=== PATIENT | male | born 2000 | race Two or more races ===

== ENCOUNTER 2022-09-03 16:44 | Observation (INO) ==
--- NOTE | 2022-09-03 16:53 | ED Triage Note ---
Date of Service September 03, 2022 History of Present Illness This patient was briefly evaluated while in triage. An abbreviated physical exam was performed. This patient is a 22-year-old Male with no past medical history of who presents to the ED for evaluation of nausea diarrhea f/c upset stomach 3 days (Thursday) fever 38.3 chest ache today [employer] student in the dorm Physical Exam GENERAL: NAD, febrile CARDIOVASCULAR: RRR RESPIRATORY: CTA ABDOMEN: BS x 4. LLQ TTP Initial orders for labs and / or imaging were placed and patient was placed in the waiting area until a bed is available. Please see further documentation for the full ED course.
[2022-09-03] MEDS ORDERED: SODIUM CHLORIDE 0.9% 1000ML 1,000 ML IV SCH (16:55)
[2022-09-03 18:07] LABS: Appearance Urine Clear (Clear); Bilirubin Urine Negative (Negative); Blood Urine Negative (Negative); Color Urine Yellow; Glucose Urine UA Negative (Negative); Ketones Urine Trace (Negative); Leukocyte Esterase Urine Negative (Negative); Nitrite Urine Negative (Negative); Protein Urine Negative (Negative); Specific Gravity Urine 1.023 (1.000-1.030); Urobilinogen Urine Negative (Negative); pH Urine 6.5 (4.5-7.5)
[2022-09-03 18:12] LABS: Basophils # (auto) 0.01 K/uL (0-0.2); Basophils % (auto) 0.2 %; Eosinophils # (auto) 0.03 K/uL (0-0.50); Eosinophils % (auto) 0.6 %; Hematocrit (blood only) 47.3 % (42.0-52.0); Hemoglobin 16.6 g/dl (14.0-18.0); Immature Granulocytes # (auto) 0.01 K/uL (0.01-0.20); Immature Granulocytes % (auto) 0.2 %; Lymphocytes # (auto) 0.82 K/uL (1.2-3.4); Lymphocytes % (auto) 15.3 %; Mean Corpuscular Hemoglobin 28.3 pg (25.0-34.0); Mean Corpuscular Hgb Conc 35.1 g/dL (32.0-36.0); Mean Corpuscular Volume 80.7 fL (80.0-100.0); Mean Platelet Volume 9.2 fL (9.4-12.4); Monocytes # (auto) 0.72 K/uL (0.11-0.59); Monocytes % (auto) 13.4 %; Neutrophils # (auto) 3.77 K/uL (1.40-6.50); Neutrophils % (auto) 70.3 %; Platelet Count 166 K/uL (130-400); RDW Coefficient of Variation 12.7 % (11.5-14.5); RDW Standard Deviation 37.1 fL (36.4-46.3); Red Blood Count 5.86 M/uL (4.70-6.10); White Blood Count 5.36 K/ul (4.8-10.8)
[2022-09-03 18:30] LABS: Albumin Globulin Ratio 1.5 (0.9-2); Albumin Level 4.5 gm/dl (3.4-5.0); Bilirubin,Total 2.5 mg/dl (0.2-1.0); Creatinine Clr Calc Pharmacy 125.6 ml/min; Globulin 3.1 gm/dl (2.5-4.0); Total Protein 7.6 gm/dl (6.0-8.3)
[2022-09-03 18:38] LABS: Influenza A virus by PCR Negative (Neg); Influenza B virus by PCR Negative (Neg); RSV by PCR Negative (Neg); SARS CoV2 RNA(COVID-19) Ceph NEGATIVE (Negative)
[2022-09-03 18:40] LABS: BUN Creatinine Ratio 15.5 (10-20); Est GFR (African American) 111.4 ml/min; Est GFR (Non-African American) 96.1 ml/min
[2022-09-03] MEDS ORDERED: SODIUM CHLORIDE 0.9% 1000ML 1,000 ML IV ONE (19:16)
[2022-09-03] MEDS ORDERED: ACETAMINOPHEN 500 MG TAB PO STA (19:16)
[2022-09-03] MEDS ORDERED: ONDANSETRON INJ 2 MG/ML 2 ML VIAL IV STA (19:16)
[2022-09-03] MEDS ORDERED: KETOROLAC TROMETHAMINE 15 MG/ML VIAL IV ONE (19:16)
--- NOTE | 2022-09-03 19:20 | Emergency Department Note ---
Impression & Plan Acute myopericarditis, Chest pain, Elevated troponin I level, Diarrhea ED Provider Note NAME: DIPESH URENA AGE: 22 SEX: M : 2000 ARRIVES VIA: Walk-In INFORMANT: Patient, ED PROVIDER(S): Jarred Gilmore DO CHIEF COMPLAINT: Diarrhea HPI: The patient is a 22-year-old male who presented to the emergency department for an evaluation of diarrhea. The patient started noticing symptoms over the last 2 to 3 days. He is noticed loose bowel movements. He denies having any GI bleeding. He complains of low-grade fever and cough. He is also noticed some chest pain. The patient denies having any lower extremity swelling. He denies having any hemoptysis. He is a college student. He has no definite sick contacts. The patient's been trying [id number] medication with only minimal relief. ROS: See above HPI for pertinent positives & negatives. A total of 10 systems reviewed and were otherwise negative. PAST MEDICAL HISTORY: See Below PAST SURGICAL HISTORY: See Below FAMILY HISTORY: See Below SOCIAL HISTORY: See Below HOME MEDICATIONS: See Below ALLERGIES: See Below VITALS: See Below PHYSICAL EXAMINATION: GENERAL: Patient is awake alert in no acute distress patient is resting comfortably and showing no signs of anxiety EYES: The conjunctivae are clear. The pupils are round and reactive. EARS, NOSE, MOUTH AND THROAT: The nose is without any evidence of any deformity. Mucous membranes are moist. NECK: The neck is nontender and supple. RESPIRATORY: Normal respiratory effort is noted there is no evidence of wheezing rhonchi or rales CARDIOVASCULAR: Regular rate and rhythm noted there no murmurs rubs or gallops normal S1 normal S2. GASTROINTESTINAL: The abdomen is soft. Abdomen is nontender. MUSCULOSKELETAL/EXTREMITIES: There is no evidence of gross deformity full range of motion is noted in the hips and shoulders. SKIN: There is no obvious evidence of any rash. There are no petechiae, pallor or cyanosis noted. NEUROLOGIC: Patient is awake alert and oriented x3 strength is symmetric patellar reflexes are 2+ bilaterally MEDICAL DECISION MAKING: The patient is a 22-year-old male who presented to the emergency department for GI symptoms. Initially he was experiencing nausea vomiting and mostly diarrhea. He was treated with IV fluids and IV antiemetics. On reevaluation he was feeling much better. The patient also complained of chest pain. Initially the chest pain was described as pleuritic but then on reevaluation he was admitting that the pain was worsened with lying flat. He had no acute EKG changes but did have an elevation in his troponin. I discussed patient's condition with the on- call associate director regulatory affairs. They did recommend that I discussed the case with the admitting team for possible inpatient management as well as echocardiogram in 24 hours to evaluate the ventricle. I discussed this plan with the patient and he was agreeable. The case was discussed with the [facility] hospitalist group. Triage Nursing notes reviewed. Prior medical records reviewed Vital Signs: reviewed and remarkable for initial tachycardia and fever. Differential diagnosis: Etiologies such as appendicitis, diverticulitis, obstruction, inflammatory bowel disease, renal colic, PUD, biliary pathology, pancreatitis, mesenteric ischemia, aortic pathology, infections, genitourinary, UTI, perforated viscus, as well as others were entertained. ER treatment provided: See below Diagnostics interpreted by me: ECG: EKG was obtained in the emergency department. My interpretation is normal sinus rhythm at 81 bpm. There was no ectopy. There is no acute ST segment abnormalities noted. No previous tracing was available. Cardiac Monitoring: An order was placed for continuous cardiac monitoring. The monitor shows a rate of 80 bpm with sinus rhythm. Laboratory studies: As stated above and show below. Imaging studies: See below. Radiographic imaging was reviewed by myself Consultation(s): I discussed this case with Dr. Cervantes who is on-call for [facility] cardiology. Dr. Morales was notified about the patient. She will evaluate the patient in the emergency department. Past Med/Surg History Surgical History (Updated 09/03/22 @ 22:44 by Basil Jaffe MD) History of appendectomy Family History (Updated 09/03/22 @ 22:39 by Basil Jaffe MD) Grandfather (Paternal) Diabetes Social History Smoking Status: Never smoker Second Hand Exposure: No; Do You Dip or Chew Tobacco: No; Hx Alcohol Use: No Hx Substance Use: No Preferred Language: Greenlandic Communication Ability: Effective Clinical Specialist Medical Device Required: No Beliefs That Will Affect Care: None Current Living Situation: Other Current Living Situation Comment: [employer] student with roommate Feels Safe at Home: Yes Safety Concerns: Feels Safe At This Time Assistive Devices: None Allergies Allergies Allergy/AdvReac Type Severity Reaction Status Date / Time No Known Allergies Allergy Unverified 09/03/22 22:27 Home Meds Home Medications Medication Instructions Recorded Confirmed No Known Home Medications 09/03/22 09/03/22 Results & Data (ED) Vital Signs Vital Signs - 24 hr 09/03/22 16:51 09/03/22 20:06 09/03/22 20:05 Temperature 38.3 C H 37.9 C H Temperature Source Temporal Artery Scan Oral Pulse Rate 96 H 83 Pulse Rate [Apical] 83 Pulse Rate from SpO2 Sensor Respiratory Rate 18 18 Respiratory Effort / Characteristics Non-Labored Respiratory Depth Normal Blood Pressure 153/94 H Blood Pressure [Left Arm] 147/80 H Blood Pressure Mean 113 Blood Pressure Mean [Left Arm] 102 Pulse Oximetry 98 100 Oxygen Delivery Method Room Air Room Air Sepsis Recent Fever Within 48 Hours Yes Sepsis New/Unexplained Change in Mental Status No Sepsis Action Taken by Nursing No Action Required 09/03/22 20:02 09/03/22 20:30 09/03/22 20:30 Temperature Temperature Source Pulse Rate 88 87 Pulse Rate [Apical] Pulse Rate from SpO2 Sensor 89 88 Respiratory Rate 24 22 Respiratory Effort / Characteristics Respiratory Depth Blood Pressure 134/68 Blood Pressure [Left Arm] Blood Pressure Mean 90 Blood Pressure Mean [Left Arm] Pulse Oximetry 98 96 Oxygen Delivery Method Sepsis Recent Fever Within 48 Hours Sepsis New/Unexplained Change in Mental Status Sepsis Action Taken by Nursing 09/03/22 21:10 09/03/22 21:12 09/03/22 21:12 Temperature Temperature Source Pulse Rate 89 88 Pulse Rate [Apical] Pulse Rate from SpO2 Sensor 90 88 Respiratory Rate 18 19 Respiratory Effort / Characteristics Respiratory Depth Blood Pressure 124/68 Blood Pressure [Left Arm] Blood Pressure Mean 86 Blood Pressure Mean [Left Arm] Pulse Oximetry 97 98 Oxygen Delivery Method Sepsis Recent Fever Within 48 Hours Sepsis New/Unexplained Change in Mental Status Sepsis Action Taken by Nursing 09/03/22 22:21 09/03/22 21:30 09/03/22 21:30 Temperature 37.0 C Temperature Source Oral Pulse Rate 86 Pulse Rate [Apical] 66 Pulse Rate from SpO2 Sensor 90 Respiratory Rate 20 18 Respiratory Effort / Characteristics Non-Labored Respiratory Depth Normal Blood Pressure 135/72 Blood Pressure [Left Arm] 125/72 Blood Pressure Mean 93 Blood Pressure Mean [Left Arm] 89 Pulse Oximetry 99 97 Oxygen Delivery Method Room Air Sepsis Recent Fever Within 48 Hours Sepsis New/Unexplained Change in Mental Status Sepsis Action Taken by Nursing 09/03/22 22:00 09/03/22 22:00 09/03/22 22:30 Temperature Temperature Source Pulse Rate 76 87 Pulse Rate [Apical] Pulse Rate from SpO2 Sensor 74 86 Respiratory Rate 18 24 Respiratory Effort / Characteristics Respiratory Depth Blood Pressure 125/72 Blood Pressure [Left Arm] Blood Pressure Mean 89 Blood Pressure Mean [Left Arm] Pulse Oximetry 98 97 Oxygen Delivery Method Sepsis Recent Fever Within 48 Hours Sepsis New/Unexplained Change in Mental Status Sepsis Action Taken by Nursing 09/03/22 23:00 Temperature Temperature Source Pulse Rate 70 Pulse Rate [Apical] Pulse Rate from SpO2 Sensor 69 Respiratory Rate 14 Respiratory Effort / Characteristics Respiratory Depth Blood Pressure Blood Pressure [Left Arm] Blood Pressure Mean Blood Pressure Mean [Left Arm] Pulse Oximetry 97 Oxygen Delivery Method Sepsis Recent Fever Within 48 Hours Sepsis New/Unexplained Change in Mental Status Sepsis Action Taken by [facility] Medications Current Medication List: was personally reviewed by me Laboratory Data Attestation: I reviewed the patient's lab results. 09/03/22 17:43 09/03/22 17:43 Lab Results 09/03/22 09/03/22 09/03/22 Range/Units 17:43 17:43 17:43 WBC 5.36 (4.8-10.8) K/ul RBC 5.86 (4.70-6.10) M/uL Hgb 16.6 (14.0-18.0) g/dl Hct 47.3 (42.0-52.0) % MCV 80.7 (80.0-100.0) fL MCH 28.3 (25.0-34.0) pg MCHC 35.1 (32.0-36.0) g/dL RDW Std Deviation 37.1 (36.4-46.3) fL RDW Coeff of Nadeen 12.7 (11.5-14.5) % Plt Count 166 (130-400) K/uL MPV 9.2 L (9.4-12.4) fL Immature Gran % (Auto) 0.2 % Neut % (Auto) 70.3 % Lymph % (Auto) 15.3 % [place] % (Auto) 13.4 % Eos % (Auto) 0.6 % Baso % (Auto) 0.2 % Neut # (Auto) 3.77 (1.40-6.50) K/uL Lymph # (Auto) 0.82 L (1.2-3.4) K/uL [place] # (Auto) 0.72 H (0.11-0.59) K/uL Eos # (Auto) 0.03 (0-0.50) K/uL Baso # (Auto) 0.01 (0-0.2) K/uL Immature Gran # (Auto) 0.01 (0.01-0.20) K/uL Sodium 133 L (136-145) mmol/L Potassium 4.0 (3.5-5.1) mmol/L Chloride 99 (98-107) mmol/L Carbon Dioxide 29 (21-32) mmol/L Anion Gap 5 (3-11) BUN 17 (6-23) mg/dl Creatinine 1.10 (0.6-1.4) mg/dl Est Cr Clr Drug Dosing 125.6 ml/min Est GFR ( Amer) 111.4 ml/min Est GFR (Non-Af Amer) 96.1 ml/min BUN/Creatinine Ratio 15.5 (10-20) Glucose 92 (70-99(Fasting)) mg/dl Calcium 9.0 (8.5-10.1) mg/dl Total Bilirubin 2.5 H (0.2-1.0) mg/dl AST 29 (13-39) U/L ALT 31 (7-52) U/L Alkaline Phosphatase 64 (34-104) U/L Troponin I High Sens 61.9 H* (0-20) pg/ml Total Protein 7.6 (6.0-8.3) gm/dl Albumin 4.5 (3.4-5.0) gm/dl Globulin 3.1 (2.5-4.0) gm/dl Albumin/Globulin Ratio 1.5 (0.9-2) Lipase 7 L (11-82) U/L Urine Color Urine Appearance (Clear) Urine pH (4.5-7.5) Ur Specific Carlyle (1.000-1.030) Urine Protein (Negative) Urine Glucose (UA) (Negative) Urine Ketones (Negative) Urine Blood (Negative) Urine Nitrite (Negative) Urine Bilirubin (Negative) Urine Urobilinogen (Negative) Ur Leukocyte Esterase (Negative) Adenovirus (PCR) (NotDetected) B. pertussis DNA (PCR) (NotDetected) B.parapertussis DNA PCR (NotDetected) C. pneumoniae DNA (PCR) (NotDetected) Coronavirus OC43 (PCR) (NotDetected) Coronavirus HKU1 (PCR) (NotDetected) Coronavirus 229E (PCR) (NotDetected) SARS-CoV-2 (PCR) NEGATIVE (Negative) Coronavirus NL63 (PCR) (NotDetected) Human Metapneumovir PCR (NotDetected) Influenza Type A (PCR) Negative (Neg) Influenza Type B (PCR) Negative (Neg) M. pneumoniae (PCR) (NotDetected) Parainfluenza 1 (PCR) (NotDetected) Parainfluenza 2 (PCR) (NotDetected) Parainfluenza 3 (PCR) (NotDetected) Parainfluenza 4 (PCR) (NotDetected) RSV (RT-PCR) Negative (Neg) RSV (PCR) (NotDetected) Entero/Rhino (PCR) (NotDetected) 09/03/22 09/03/22 Range/Units 17:46 22:24 WBC (4.8-10.8) K/ul RBC (4.70-6.10) M/uL Hgb (14.0-18.0) g/dl Hct (42.0-52.0) % MCV (80.0-100.0) fL MCH (25.0-34.0) pg MCHC (32.0-36.0) g/dL RDW Std Deviation (36.4-46.3) fL RDW Coeff of Nadeen (11.5-14.5) % Plt Count (130-400) K/uL MPV (9.4-12.4) fL Immature Gran % (Auto) % Neut % (Auto) % Lymph % (Auto) % [place] % (Auto) % Eos % (Auto) % Baso % (Auto) % Neut # (Auto) (1.40-6.50) K/uL Lymph # (Auto) (1.2-3.4) K/uL [place] # (Auto) (0.11-0.59) K/uL Eos # (Auto) (0-0.50) K/uL Baso # (Auto) (0-0.2) K/uL Immature Gran # (Auto) (0.01-0.20) K/uL Sodium (136-145) mmol/L Potassium (3.5-5.1) mmol/L Chloride (98-107) mmol/L Carbon Dioxide (21-32) mmol/L Anion Gap (3-11) BUN (6-23) mg/dl Creatinine (0.6-1.4) mg/dl Est Cr Clr Drug Dosing ml/min Est GFR ( Amer) ml/min Est GFR (Non-Af Amer) ml/min BUN/Creatinine Ratio (10-20) Glucose (70-99(Fasting)) mg/dl Calcium (8.5-10.1) mg/dl Total Bilirubin (0.2-1.0) mg/dl AST (13-39) U/L ALT (7-52) U/L Alkaline Phosphatase (34-104) U/L Troponin I High Sens (0-20) pg/ml Total Protein (6.0-8.3) gm/dl Albumin (3.4-5.0) gm/dl Globulin (2.5-4.0) gm/dl Albumin/Globulin Ratio (0.9-2) Lipase (11-82) U/L Urine Color Yellow Urine Appearance Clear (Clear) Urine pH 6.5 (4.5-7.5) Ur Specific Carlyle 1.023 (1.000-1.030) Urine Protein Negative (Negative) Urine Glucose (UA) Negative (Negative) Urine Ketones Trace H (Negative) Urine Blood Negative (Negative) Urine Nitrite Negative (Negative) Urine Bilirubin Negative (Negative) Urine Urobilinogen Negative (Negative) Ur Leukocyte Esterase Negative (Negative) Adenovirus (PCR) DETECTED A* (NotDetected) B. pertussis DNA (PCR) Not Detected (NotDetected) B.parapertussis DNA PCR Not Detected (NotDetected) C. pneumoniae DNA (PCR) Not Detected (NotDetected) Coronavirus OC43 (PCR) Not Detected (NotDetected) Coronavirus HKU1 (PCR) Not Detected (NotDetected) Coronavirus 229E (PCR) Not Detected (NotDetected) SARS-CoV-2 (PCR) Not Detected (Negative) Coronavirus NL63 (PCR) Not Detected (NotDetected) Human Metapneumovir PCR Not Detected (NotDetected) Influenza Type A (PCR) Not Detected (Neg) Influenza Type B (PCR) Not Detected (Neg) M. pneumoniae (PCR) Not Detected (NotDetected) Parainfluenza 1 (PCR) Not Detected (NotDetected) Parainfluenza 2 (PCR) Not Detected (NotDetected) Parainfluenza 3 (PCR) Not Detected (NotDetected) Parainfluenza 4 (PCR) Not Detected (NotDetected) RSV (RT-PCR) (Neg) RSV (PCR) Not Detected (NotDetected) Entero/Rhino (PCR) Not Detected (NotDetected) Administered Medications Ibuprofen (Ibuprofen 600 Mg Tab) 600 mg PO Q8H RODRIGUEZ Stop: 10/04/22 05:59 Last Admin: 09/04/22 05:12 Dose: 600 mg Documented By: Admin: 09/04/22 01:02 Dose: Not Given Documented By: DESI Discontinued Medications Acetaminophen (Acetaminophen 500 Mg Tab) 1,000 mg PO NOW STA Stop: 09/03/22 19:17 Last Admin: 09/03/22 20:05 Dose: 1,000 mg Documented By: DESI Colchicine (Colchicine 0.6 Mg Tab) 0.6 mg PO NOW ONE Stop: 09/03/22 22:09 Last Admin: 09/03/22 22:23 Dose: 0.6 mg Documented By: DESI Sodium Chloride (Nss 1000ml) 1,000 mls @ 999 mls/hr IV .Q1H1M RODRIGUEZ Stop: 09/03/22 17:55 Last Infusion: 09/03/22 19:09 Dose: 0 mls/hr Documented By: Admin: 09/03/22 17:41 Dose: 999 mls/hr Documented By: ALEJO Sodium Chloride (Nss 1000ml) 1,000 mls @ 999 mls/hr IV .Q1H1M ONE Stop: 09/03/22 20:16 Last Infusion: 09/03/22 21:17 Dose: 0 mls/hr Documented By: Admin: 09/03/22 20:04 Dose: 999 mls/hr Documented By: DESI Ibuprofen (Ibuprofen 600 Mg Tab) Confirm Administered Dose 600 mg PO .STK-MED ONE Stop: 09/04/22 00:55 Last Admin: 09/04/22 01:01 Dose: 600 mg Documented By: DESI Ioversol (Optiray 320 500ml) 107 ml IV ONCE ONE Stop: 09/03/22 21:05 Last Admin: 09/03/22 21:04 Dose: 107 ml Documented By: ALEN Ketorolac Tromethamine (Ketorolac Tromethamine 15 Mg/Ml Vial) 10 mg IV NOW ONE Stop: 09/03/22 19:17 Last Admin: 09/03/22 20:03 Dose: 10 mg Documented By: DESI Ondansetron HCl (Ondansetron Inj 2 Mg/Ml 2 Ml Vial) 4 mg IV NOW STA Stop: 09/03/22 19:17 Last Admin: 09/03/22 20:02 Dose: 4 mg Documented By: DESI Imaging Data Radiologist's Impression: Abdomen/Pelvis CT 09/03/22 20:48 CT ANGIOGRAM OF THE CHEST; CT SCAN OF THE ABDOMEN AND PELVIS WITH IV CONTRAST CLINICAL HISTORY: Atypical chest pain. Generalized abdominal pain. Nausea. Fever. COMPARISON STUDY: Chest and abdominal radiographs dated 09/03/2022. TECHNIQUE: Following the IV administration of 107 of Optiray 320, CT angiogram of the chest is performed from the upper abdomen to the thoracic inlet utilizing the pulmonary embolus protocol. Images are reviewed in the axial, sagittal, coronal planes. 3-D MIPS images are created and assessed. Subsequently, CT scan of the abdomen and pelvis was performed from the lung bases to the proximal femora. Images are reviewed in the axial, sagittal, and coronal planes. IV contrast was administered without complication. A dose lowering technique was utilized adhering to the principles of ALARA. CT DOSE: 645.57 mGy.cm FINDINGS: CHEST: Thyroid: Imaged portions of the thyroid gland are normal in size and attenuation. Thoracic aorta: The thoracic aorta is normal in caliber and demonstrates s tandard 3-vessel arch anatomy. No dissection is seen. Pulmonary vasculature: The pulmonary trunk is normal in caliber. There are no filling defects identified in the main, lobar, or segmental pulmonary arteries to indicate pulmonary embolus. Heart: The heart is normal in size and without pericardial effusion. Lungs and pleural spaces: The lungs and pleural spaces are clear. The trachea and central airways are patent. Mediastinum: Minimal residual thymic tissue is seen anteriorly. There is no mediastinal lymphadenopathy. [place]: Clear. Axillae: There is no axillary lymphadenopathy. Bony thorax: No lytic or blastic lesions are identified. ABDOMEN AND PELVIS: Liver: The contrast-enhanced liver is normal in size, contour, and attenuation. There is no intrahepatic biliary ductal dilatation. The hepatic veins and portal veins are patent. Gallbladder: Unremarkable. Spleen: Normal in size and attenuation. Pancreas: Unremarkable. Adrenal glands: Unremarkable. Kidneys: The contrast enhanced kidneys are normal in size and without hydronephrosis. The kidneys enhance symmetrically. Abdominal vasculature: The abdominal aorta is normal in course and caliber. Bowel: There is no bowel obstruction. Mild fecal retention is seen throughout the colon. There are numerous fluid-filled loops of small bowel. No bowel wall thickening or surrounding inflammation is seen. The appendix is surgically absent. Peritoneum: There is no intraperitoneal free air or abdominal ascites. Lymphadenopathy: Numerous prominent mesenteric lymph nodes are likely reactive. Pelvic viscera: The bladder wall appears circumferentially thickened. The prostate and seminal vesicles are normal as visualized. Skeletal structures: No lytic or blastic lesions are seen. IMPRESSION: 1. There is no evidence of pulmonary embolus in the main, lobar, or segmental pulmonary arteries. 2. The lungs are clear. 3. Findings suggest a nonspecific enteritis. Clinical correlation will be required. 4. No bowel obstruction is seen. 5. Numerous prominent mesenteric lymph nodes are likely reactive. 6. The bladder wall appears thickened. Correlate with clinical findings and urinalysis. 7. Additional findings as above. ACT 112: Negative or not required by law. Electronically signed by: Jones Madden M.D. 09/03/2022 9:16 PM Chest CTA 09/03/22 20:48 CT ANGIOGRAM OF THE CHEST; CT SCAN OF THE ABDOMEN AND PELVIS WITH IV CONTRAST CLINICAL HISTORY: Atypical chest pain. Generalized abdominal pain. Nausea. Fever. COMPARISON STUDY: Chest and abdominal radiographs dated 09/03/2022. TECHNIQUE: Following the IV administration of 107 of Optiray 320, CT angiogram of the chest is performed from the upper abdomen to the thoracic inlet utilizing the pulmonary embolus protocol. Images are reviewed in the axial, sagittal, coronal planes. 3-D MIPS images are created and assessed. Subsequently, CT scan of the abdomen and pelvis was performed from the lung bases to the proximal femora. Images are reviewed in the axial, sagittal, and coronal planes. IV contrast was administered without complication. A dose lowering technique was utilized adhering to the principles of ALARA. CT DOSE: 645.57 mGy.cm FINDINGS: CHEST: Thyroid: Imaged portions of the thyroid gland are normal in size and attenuation. Thoracic aorta: The thoracic aorta is normal in caliber and demonstrates standard 3-vessel arch anatomy. No dissection is seen. Pulmonary vasculature: The pulmonary trunk is normal in caliber. There are no filling defects identified in the main, lobar, or segmental pulmonary arteries t o indicate pulmonary embolus. Heart: The heart is normal in size and without pericardial effusion. Lungs and pleural spaces: The lungs and pleural spaces are clear. The trachea and central airways are patent. Mediastinum: Minimal residual thymic tissue is seen anteriorly. There is no mediastinal lymphadenopathy. [place]: Clear. Axillae: There is no axillary lymphadenopathy. Bony thorax: No lytic or blastic lesions are identified. ABDOMEN AND PELVIS: Liver: The contrast-enhanced liver is normal in size, contour, and attenuation. There is no intrahepatic biliary ductal dilatation. The hepatic veins and portal veins are patent. Gallbladder: Unremarkable. Spleen: Normal in size and attenuation. Pancreas: Unremarkable. Adrenal glands: Unremarkable. Kidneys: The contrast enhanced kidneys are normal in size and without hydronephrosis. The kidneys enhance symmetrically. Abdominal vasculature: The abdominal aorta is normal in course and caliber. Bowel: There is no bowel obstruction. Mild fecal retention is seen throughout the colon. There are numerous fluid-filled loops of small bowel. No bowel wall thickening or surrounding inflammation is seen. The appendix is surgically absent. Peritoneum: There is no intraperitoneal free air or abdominal ascites. Lymphadenopathy: Numerous prominent mesenteric lymph nodes are likely reactive. Pelvic viscera: The bladder wall appears circumferentially thickened. The pros roy and seminal vesicles are normal as visualized. Skeletal structures: No lytic or blastic lesions are seen. IMPRESSION: 1. There is no evidence of pulmonary embolus in the main, lobar, or segmental pulmonary arteries. 2. The lungs are clear. 3. Findings suggest a nonspecific enteritis. Clinical correlation will be required. 4. No bowel obstruction is seen. 5. Numerous prominent mesenteric lymph nodes are likely reactive. 6. The bladder wall appears thickened. Correlate with clinical findings and urinalysis. 7. Additional findings as above. ACT 112: Negative or not required by law. Electronically signed by: Jones Madden M.D. 09/03/2022 9:16 PM Discharge Plan Visit Data Chief Complaint: Illness Stated Complaint: SICK WITH STOMACH BUG, CHEST HURT, SHORT OF BREATH ED Provider: Jarred Gilmore Discharge Problem: Acute myopericarditis, Chest pain, Elevated troponin I level, Diarrhea Patient Disposition: Admitted As Inpatient Discharge Instructions Interventions: ED Discharge Assessment Last Done: 09/04/22 01:06 Chest pain Qualifiers: Chest pain type: unspecified Qualified Code(s): R07.9 - Chest pain, unspecified Diarrhea Qualifiers: Diarrhea type: unspecified type Qualified Code(s): R19.7 - Diarrhea, unspecified
--- NOTE | 2022-09-03 19:52 | XRay Report ---
SINGLE VIEW CHEST CLINICAL HISTORY: Atypical chest pain FINDINGS: 2 AP, portable, upright chest radiographs are obtained. No prior studies are available for comparison at the time of dictation. The cardiomediastinal silhouette is unremarkable. The lungs and pleural spaces are clear. No pneumothorax is seen. The bony thorax is grossly intact. IMPRESSION: No active disease in the chest. ACT 112: Negative or not required by law. Electronically signed by: Jones Madden M.D. 09/03/2022 7:50 PM
--- NOTE | 2022-09-03 20:12 | XRay Report ---
KUB CLINICAL HISTORY: Diarrhea. FINDINGS: An AP, portable, supine abdominal radiograph is obtained. No prior studies are available fo r comparison at the time of dictation. There is a nonobstructed abdominal bowel gas pattern. No evide nce of intraperitoneal free air is seen on this supine image. There are no abnormal abdominal calcifi cations. There is no evidence of organomegaly or mass effect. The bony structures appear intact. IMPRESSION: No acute abnormality is identified. Electronically signed by: Jones Madden M.D. 09/03/2022 8:11 PM
[2022-09-03 20:46] LABS: Troponin I High Sensitivity 61.9 pg/ml (0-20)
[2022-09-03] MEDS ORDERED: OPTIRAY 320 500ml IV ONE (21:04)
--- NOTE | 2022-09-03 21:19 | CT Scan Report ---
CT ANGIOGRAM OF THE CHEST; CT SCAN OF THE ABDOMEN AND PELVIS WITH IV CONTRAST CLINICAL HISTORY: Atypical chest pain. Generalized abdominal pain. Nausea. Fever. COMPARISON STUDY: Chest and abdominal radiographs dated 09/03/2022. TECHNIQUE: Following the IV administration of 107 of Optiray 320, CT angiogram of the chest is perfor med from the upper abdomen to the thoracic inlet utilizing the pulmonary embolus protocol. Images are reviewed in the axial, sagittal, coronal planes. 3-D MIPS images are created and assessed. Subsequen tly, CT scan of the abdomen and pelvis was performed from the lung bases to the proximal femora. Imag es are reviewed in the axial, sagittal, and coronal planes. IV contrast was administered without comp lication. A dose lowering technique was utilized adhering to the principles of ALARA. CT DOSE: 645.57 mGy.cm FINDINGS: CHEST: Thyroid: Imaged portions of the thyroid gland are normal in size and attenuation. Thoracic aorta: The thoracic aorta is normal in caliber and demonstrates standard 3-vessel arch anato my. No dissection is seen. Pulmonary vasculature: The pulmonary trunk is normal in caliber. There are no filling defects identif ied in the main, lobar, or segmental pulmonary arteries to indicate pulmonary embolus. Heart: The heart is normal in size and without pericardial effusion. Lungs and pleural spaces: The lungs and pleural spaces are clear. The trachea and central airways are patent. Mediastinum: Minimal residual thymic tissue is seen anteriorly. There is no mediastinal lymphadenopat hy. Asuncion: Clear. Axillae: There is no axillary lymphadenopathy. Bony thorax: No lytic or blastic lesions are identified. ABDOMEN AND PELVIS: Liver: The contrast-enhanced liver is normal in size, contour, and attenuation. There is no intrahepa tic biliary ductal dilatation. The hepatic veins and portal veins are patent. Gallbladder: Unremarkable. Spleen: Normal in size and attenuation. Pancreas: Unremarkable. Adrenal glands: Unremarkable. Kidneys: The contrast enhanced kidneys are normal in size and without hydronephrosis. The kidneys enh ance symmetrically. Abdominal vasculature: The abdominal aorta is normal in course and caliber. Bowel: There is no bowel obstruction. Mild fecal retention is seen throughout the colon. There are nu merous fluid-filled loops of small bowel. No bowel wall thickening or surrounding inflammation is see n. The appendix is surgically absent. Peritoneum: There is no intraperitoneal free air or abdominal ascites. Lymphadenopathy: Numerous prominent mesenteric lymph nodes are likely reactive. Pelvic viscera: The bladder wall appears circumferentially thickened. The prostate and seminal vesicl es are normal as visualized. Skeletal structures: No lytic or blastic lesions are seen. IMPRESSION: 1. There is no evidence of pulmonary embolus in the main, lobar, or segmental pulmonary arteries. 2. The lungs are clear. 3. Findings suggest a nonspecific enteritis. Clinical correlation will be required. 4. No bowel obstruction is seen. 5. Numerous prominent mesenteric lymph nodes are likely reactive. 6. The bladder wall appears thickened. Correlate with clinical findings and urinalysis. 7. Additional findings as above. ACT 112: Negative or not required by law. Electronically signed by: Jones Madden M.D. 09/03/2022 9:16 PM
[2022-09-03] MEDS ORDERED: COLCHICINE 0.6 MG TAB PO ONE (22:08)
--- NOTE | 2022-09-03 22:33 | History & Physical Report ---
Date of Service September 03, 2022 Assessment & Plan (1) Pleuritic chest pain: Plan: 22 y/o male w/ no PMHx who presents w/ nausea, watery diarrhea (no blood or mucus), and epigastric abd pain since 2 days ago and new-onset pleuritic chest pain today. - considered myopericarditis in setting of possible viral GI illness. MMR vaccine 1 month ago - ecg w/o myopericarditis-specific changes. prn ecg if chest pain - continue colchicine at 0.6mg BID - ibuprofen 600mg TID. If echo shows reduced EF, reconsider use of nsaids. Cr 1.10 noted. - mildly elevated hstrop: repeat - respiratory biofire pos for adenovirus - TTE - will need to teacher counselor on etoh use - activity restriction; avoid strenuous exercise - consult cardiology (2) Enteritis: Plan: - nonspecific enteritis noted on CT abd. GI biofire ordered (3) Elevated serum creatinine: Plan: - baseline unknown. patient takes multiple nutritional supplements. dysuria noted, though UA neg (4) Elevated bilirubin: Plan: - check CMP and d bili in AM. 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 No maintenance IV fluids. ppx: scds code: full dispo: med tele History of Present Illness Chief Complaint: GI symptoms and pleuritic chest pain Primary Care Provider: NO PCP 22 y/o male w/ no PMHx who presents w/ nausea, watery diarrhea (no blood or mucus), and epigastric abd pain since 2 days ago. Fever to 38.3F. Pleuritic midsternal chest pain since noon today. [employer] student. No undercooked foods or recent travel. 08/31 roommate was vomiting. Feeling better currently. Pain level is 2-3/10 (improved from 7/10). He recived meningococcal and MMR vaccines last month. Denies having diabetes type symptoms. Denies fhx of sickle cell or gallbladder disease. Decreased appetite since 09/01. No marijuana or etoh in past month in past month. Recreational tobacco. Binge drinks etoh on some weekends. Had waves of 8/10 abd pain, no radiation, stayed for minutes. No hx similar. No current epigastric pain or pleuritic chest pain: the ED medications helped. No fhx VTE. He states he takes a lot of nutritional supplements, including vitamins, minerals, and workout protein. Ed course: Discussed w/ cardiology. Colchicine. 2L NSS. Toradol, IV Tylenol. 38.3C. HR 96x1, resolved. Other VSS. CBC wnl. Na 133. Cr 1.10. T bili 2.5. hs trop 61.9x1. Lipase wnl. UA w/ trace ketones. resp biofire pos for adenovirus. CT abd w/ suggests nonspecific enteritis. CTA neg for PE. Allergies Allergy/AdvReac Type Severity Reaction Status Date / Time No Known Allergies Allergy Unverified 09/03/22 22:27 Home Medications Medication Instructions Recorded Confirmed Type No Known Home Medications 09/03/22 09/03/22 History Past Med/Surg History Surgical History (Updated 09/03/22 @ 22:44 by Basil Jaffe MD) History of appendectomy Family History (Updated 09/03/22 @ 22:39 by Basil Jaffe MD) Grandfather (Paternal) Diabetes Social History Smoking Status: Never smoker Feels Safe at Home: Yes Review of Systems Review of Systems: All systems reviewed & are unremarkable except as noted in HPI & below Chills since 09/01. + dysuria this morning. Denies STI concerns or new partners. + some malaise earlier today. No emesis. Denies URI symptoms such as cough, sore throat, rhinorrhea, otalgia. Physical Exam Physical Exam: General: Grossly A&O. NAD. Cooperative. HEENT: Atraumatic, normocephalic. EOMI. PERRL. Pulm: CTAB. -wheezes, -rales, -rhonchi. Symmetrical chest rise. No respiratory distress. Cardiac: RRR, -mrg. Radial pulses intact and symmetrical. No LE edema. Abdominal: Nontender, nondistended, soft. No epigastric TTP. Msk: No reproducible chest wall ttp. No CVA ttp. Integ: Warm, dry, intact. Results & Data Results & Data ([facility]) Vital Signs (Past 12 Hours) Vital Signs Temp Pulse Pulse Resp BP BP Pulse Ox 09/03/22 22:21 37.0 C 66 20 125/72 99 09/03/22 21:12 88 19 98 09/03/22 21:12 124/68 09/03/22 21:10 89 18 97 09/03/22 20:30 87 22 96 09/03/22 20:30 134/68 09/03/22 20:02 88 24 98 09/03/22 20:05 83 09/03/22 20:06 37.9 C H 83 18 147/80 H 100 09/03/22 16:51 38.3 C H 96 H 18 153/94 H 98 O2 Del Method 09/03/22 22:21 Room Air 09/03/22 21:12 09/03/22 21:12 09/03/22 21:10 09/03/22 20:30 09/03/22 20:30 09/03/22 20:02 09/03/22 20:05 09/03/22 20:06 Room Air 09/03/22 16:51 Room Air Laboratory Results Cardiac Enzymes 09/03/22 Range/Units 17:43 AST 29 (13-39) U/L Troponin I High Sens 61.9 H* (0-20) pg/ml CBC 09/03/22 Range/Units 17:43 WBC 5.36 (4.8-10.8) K/ul RBC 5.86 (4.70-6.10) M/uL Hgb 16.6 (14.0-18.0) g/dl Hct 47.3 (42.0-52.0) % Plt Count 166 (130-400) K/uL Neut # (Auto) 3.77 (1.40-6.50) K/uL Lymph # (Auto) 0.82 L (1.2-3.4) K/uL [place] # (Auto) 0.72 H (0.11-0.59) K/uL Eos # (Auto) 0.03 (0-0.50) K/uL Baso # (Auto) 0.01 (0-0.2) K/uL Comprehensive Metabolic Panel 09/03/22 Range/Units 17:43 Sodium 133 L (136-145) mmol/L Potassium 4.0 (3.5-5.1) mmol/L Chloride 99 (98-107) mmol/L Carbon Dioxide 29 (21-32) mmol/L BUN 17 (6-23) mg/dl Creatinine 1.10 (0.6-1.4) mg/dl Glucose 92 (70-99(Fasting)) mg/dl Calcium 9.0 (8.5-10.1) mg/dl AST 29 (13-39) U/L ALT 31 (7-52) U/L Alkaline Phosphatase 64 (34-104) U/L Total Protein 7.6 (6.0-8.3) gm/dl Albumin 4.5 (3.4-5.0) gm/dl Intake and Output 09/03/22 09/03/22 09/04/22 14:59 22:59 06:59 Intake Total 1999 Balance 1999 Intake: IV 1999 Sodium Chloride 0.9% 1000ML 1, 1999 000 ml @ 999 mls/hr IV .Q1H1M ONE Rx#:[id number] Other: Weight 82.5 kg Weight Measurement Method Chair Scale Patient Weight 09/04/22 06:59 Weight 82.5 kg Diagnostic Findings Chest X-Ray 09/03/22 19:16 SINGLE VIEW CHEST CLINICAL HISTORY: Atypical chest pain FINDINGS: 2 AP, portable, upright chest radiographs are obtained. No prior studies are available for comparison at the time of dictation. The cardiomediastinal silhouette is unremarkable. The lungs and pleural spaces are clear. No pneumothorax is seen. The bony thorax is grossly intact. IMPRESSION: No active disease in the chest. ACT 112: Negative or not required by law. Electronically signed by: Jones Madden M.D. 09/03/2022 7:50 PM KUB X-Ray 09/03/22 19:16 KUB CLINICAL HISTORY: Diarrhea. FINDINGS: An AP, portable, supine abdominal radiograph is obtained. No prior studies are available for comparison at the time of dictation. There is a nonobstructed abdominal bowel gas pattern. No evidence of intraperitoneal free air is seen on this supine image. There are no abnormal abdominal calcifications. There is no evidence of organomegaly or mass effect. The bony structures appear intact. IMPRESSION: No acute abnormality is identified. Electronically signed by: Jones Madden M.D. 09/03/2022 8:11 PM Abdomen/Pelvis CT 09/03/22 20:48 CT ANGIOGRAM OF THE CHEST; CT SCAN OF THE ABDOMEN AND PELVIS WITH IV CONTRAST CLINICAL HISTORY: Atypical chest pain. Generalized abdominal pain. Nausea. Fever. COMPARISON STUDY: Chest and abdominal radiographs dated 09/03/2022. TECHNIQUE: Following the IV administration of 107 of Optiray 320, CT angiogram of the chest is performed from the upper abdomen to the thoracic inlet utilizing the pulmonary embolus protocol. Images are reviewed in the axial, sagittal, coronal planes. 3-D MIPS images are created and assessed. Subsequently, CT scan of the abdomen and pelvis was performed from the lung bases to the proximal femora. Images are reviewed in the axial, sagittal, and coronal planes. IV contrast was administered without complication. A dose lowering technique was utilized adhering to the principles of ALARA. CT DOSE: 645.57 mGy.cm FINDINGS: CHEST: Thyroid: Imaged portions of the thyroid gland are normal in size and attenuation. Thoracic aorta: The thoracic aorta is normal in caliber and demonstrates standard 3-vessel arch anatomy. No dissection is seen. Pulmonary vasculature: The pulmonary trunk is normal in caliber. There are no filling defects identified in the main, lobar, or segmental pulmonary arteries to indicate pulmonary embolus. Heart: The heart is normal in size and without pericardial effusion. Lungs and pleural spaces: The lungs and pleural spaces are clear. The trachea and central airways are patent. Mediastinum: Minimal residual thymic tissue is seen anteriorly. There is no mediastinal lymphadenopathy. [place]: Clear. Axillae: There is no axillary lymphadenopathy. Bony thorax: No lytic or blastic lesions are identified. ABDOMEN AND PELVIS: Liver: The contrast-enhanced liver is normal in size, contour, and attenuation. There is no intrahepatic biliary ductal dilatation. The hepatic veins and portal veins are patent. Gallbladder: Unremarkable. Spleen: Normal in size and attenuation. Pancreas: Unremarkable. Adrenal glands: Unremarkable. Kidneys: The contrast enhanced kidneys are normal in size and without hydronephrosis. The kidneys enhance symmetrically. Abdominal vasculature: The abdominal aorta is normal in course and caliber. Bowel: There is no bowel obstruction. Mild fecal retention is seen throughout the colon. There are numerous fluid-filled loops of small bowel. No bowel wall thickening or surrounding inflammation is seen. The appendix is surgically absent. Peritoneum: There is no intraperitoneal free air or abdominal ascites. Lymphadenopathy: Numerous prominent mesenteric lymph nodes are likely reactive. Pelvic viscera: The bladder wall appears circumferentially thickened. The prostate and seminal vesicles are normal as visualized. Skeletal structures: No lytic or blastic lesions are seen. IMPRESSION: 1. There is no evidence of pulmonary embolus in the main, lobar, or segmental pulmonary arteries. 2. The lungs are clear. 3. Findings suggest a nonspecific enteritis. Clinical correlation will be required. 4. No bowel obstruction is seen. 5. Numerous prominent mesenteric lymph nodes are likely reactive. 6. The bladder wall appears thickened. Correlate with clinical findings and urinalysis. 7. Additional findings as above. ACT 112: Negative or not required by law. Electronically signed by: Jones Madden M.D. 09/03/2022 9:16 PM Chest CTA 09/03/22 20:48 CT ANGIOGRAM OF THE CHEST; CT SCAN OF THE ABDOMEN AND PELVIS WITH IV CONTRAST CLINICAL HISTORY: Atypical chest pain. Generalized abdominal pain. Nausea. Feve r. COMPARISON STUDY: Chest and abdominal radiographs dated 09/03/2022. TECHNIQUE: Following the IV administration of 107 of Optiray 320, CT angiogram of the chest is performed from the upper abdomen to the thoracic inlet utilizing the pulmonary embolus protocol. Images are reviewed in the axial, sagittal, coronal planes. 3-D MIPS images are created and assessed. Subsequently, CT scan of the abdomen and pelvis was performed from the lung bases to the proximal femora. Images are reviewed in the axial, sagittal, and coronal planes. IV contrast was administered without complication. A dose lowering technique was utilized adhering to the principles of ALARA. CT DOSE: 645.57 mGy.cm FINDINGS: CHEST: Thyroid: Imaged portions of the thyroid gland are normal in size and attenuation. Thoracic aorta: The thoracic aorta is normal in caliber and demonstrates standard 3-vessel arch anatomy. No dissection is seen. Pulmonary vasculature: The pulmonary trunk is normal in caliber. There are no filling defects identified in the main, lobar, or segmental pulmonary arteries to indicate pulmonary embolus. Heart: The heart is normal in size and without pericardial effusion. Lungs and pleural spaces: The lungs and pleural spaces are clear. The trachea and central airways are patent. Mediastinum: Minimal residual thymic tissue is seen anteriorly. There is no mediastinal lymphadenopathy. [place]: Clear. Axillae: There is no axillary lymphadenopathy. Bony thorax: No lytic or blastic lesions are identified. ABDOMEN AND PELVIS: Liver: The contrast-enhanced liver is normal in size, contour, and attenuation. There is no intrahepatic biliary ductal dilatation. The hepatic veins and portal veins are patent. Gallbladder: Unremarkable. Spleen: Normal in size and attenuation. Pancreas: Unremarkable. Adrenal glands: Unremarkable. Kidneys: The contrast enhanced kidneys are normal in size and without hydronephrosis. The kidneys enhance symmetrically. Abdominal vasculature: The abdominal aorta is normal in course and caliber. Bowel: There is no bowel obstruction. Mild fecal retention is seen throughout the colon. There are numerous fluid-filled loops of small bowel. No bowel wall thickening or surrounding inflammation is seen. The appendix is surgically absent. Peritoneum: There is no intraperitoneal free air or abdominal ascites. Lymphadenopathy: Numerous prominent mesenteric lymph nodes are likely reactive. Pelvic viscera: The bladder wall appears circumferentially thickened. The prostate and seminal vesicles are normal as visualized. Skeletal structures: No lytic or blastic lesions are seen. IMPRESSION: 1. There is no evidence of pulmonary embolus in the main, lobar, or segmental pulmonary arteries. 2. The lungs are clear. 3. Findings suggest a nonspecific enteritis. Clinical correlation will be required. 4. No bowel obstruction is seen. 5. Numerous prominent mesenteric lymph nodes are likely reactive. 6. The bladder wall appears thickened. Correlate with clinical findings and urinalysis. 7. Additional findings as above. ACT 112: Negative or not required by law. Electronically signed by: Jones Madden M.D. 09/03/2022 9:16 PM ECG Additional Comments: ecg reviewed by me. NSR 81 bpm. Rightward axis at [address]-T changes. Does not meet criteria for ST elevation. No prior ecg available for comparison. Code Status & VTE Plan Code Status full VTE Prophylaxis Plan VTE Prophylaxis will be ordered: Yes Resident Activity Tracking Resident Involvement: Resident Care Provided Care Provided: Adult [facility] Medicine
[2022-09-03 23:17] LABS: Bordetella parapertussis PCR Not Detected (NotDetected); Bordetella pertussis PCR Not Detected (NotDetected); Chlamydia pneumoniae PCR Not Detected (NotDetected); Coronavirus 229E PCR Not Detected (NotDetected); Coronavirus CoV-2 (COVID19)PCR Not Detected (NotDetected); Coronavirus HKU1 PCR Not Detected (NotDetected); Coronavirus NL63 PCR Not Detected (NotDetected); Coronavirus OC43PCR Not Detected (NotDetected); Human Metapneumovirus PCR Not Detected (NotDetected); Influenza A PCR Not Detected (NotDetected); Influenza B PCR Not Detected (NotDetected); Mycoplasma pneumoniae PCR Not Detected (NotDetected); Parainfluenza Virus 1 PCR Not Detected (NotDetected); Parainfluenza Virus 2 PCR Not Detected (NotDetected); Parainfluenza Virus 3 PCR Not Detected (NotDetected); Parainfluenza Virus 4 PCR Not Detected (NotDetected); Respiratory Syncytial VirusPCR Not Detected (NotDetected); Rhinovirus/Enterovirus PCR Not Detected (NotDetected)
[2022-09-03 23:41] LABS: Adenovirus PCR DETECTED (NotDetected)
[2022-09-03] MEDS ORDERED: ACETAMINOPHEN 500 MG TAB PO PRN (23:45)
[2022-09-04] MEDS ORDERED: IBUPROFEN 600 MG TAB PO ONE (00:54)
[2022-09-04] MEDS: IBUPROFEN 600 MG TAB PO SCH ×3 (01:02→13:51)
[2022-09-04] MEDS ORDERED: ONDANSETRON INJ 2 MG/ML 2 ML VIAL IV PRN (01:27)
[2022-09-04] MEDS ORDERED: FLUARIX QUADRIVALENT 0.5 ML SYR IM ONE (01:45)
[2022-09-04 06:38] LABS: Basophils # (auto) 0.01 K/uL (0-0.2); Basophils % (auto) 0.2 %; Eosinophils # (auto) 0.16 K/uL (0-0.50); Eosinophils % (auto) 3.9 %; Hematocrit (blood only) 41.1 % (42.0-52.0); Hemoglobin 14.1 g/dl (14.0-18.0); Immature Granulocytes # (auto) 0.01 K/uL (0.01-0.20); Immature Granulocytes % (auto) 0.2 %; Lymphocytes # (auto) 1.34 K/uL (1.2-3.4); Lymphocytes % (auto) 32.4 %; Mean Corpuscular Hemoglobin 27.9 pg (25.0-34.0); Mean Corpuscular Hgb Conc 34.3 g/dL (32.0-36.0); Mean Corpuscular Volume 81.4 fL (80.0-100.0); Mean Platelet Volume 9.3 fL (9.4-12.4); Monocytes # (auto) 0.78 K/uL (0.11-0.59); Monocytes % (auto) 18.9 %; Neutrophils # (auto) 1.83 K/uL (1.40-6.50); Neutrophils % (auto) 44.4 %; Platelet Count 162 K/uL (130-400); RDW Coefficient of Variation 12.8 % (11.5-14.5); RDW Standard Deviation 37.8 fL (36.4-46.3); Red Blood Count 5.05 M/uL (4.70-6.10); White Blood Count 4.13 K/ul (4.8-10.8)
[2022-09-04 06:52] LABS: Albumin Level 3.5 gm/dl (3.4-5.0); Bilirubin Direct 0.3 mg/dl (0-0.2); Bilirubin,Total 1.7 mg/dl (0.2-1.0); Calcium 8.3 mg/dl (8.5-10.1); Creatinine Clr Calc Pharmacy 124.5 ml/min; Est GFR (African American) 115.2 ml/min; Est GFR (Non-African American) 99.4 ml/min; Globulin 2.3 gm/dl (2.5-4.0); Magnesium 1.9 mg/dl (1.7-2.4); Potassium 3.5 mmol/L (3.5-5.1); Total Protein 5.8 gm/dl (6.0-8.3)
[2022-09-04 06:53] LABS: Albumin Globulin Ratio 1.5 (0.9-2)
[2022-09-04 07:04] LABS: Troponin I High Sensitivity 115.4 pg/ml (0-20)
[2022-09-04] MEDS ORDERED: COLCHICINE 0.6 MG TAB PO SCH (09:00)
--- NOTE | 2022-09-04 10:06 | XCELERA ---
[id number]
--- NOTE | 2022-09-04 10:14 | Cardiology Consultation ---
Date of Consultation September 04, 2022 Assessment & Plan (1) Acute myopericarditis: Plan 1. Myopericarditis: He presented with a history of a viral syndrome, was febrile at the time of presentation and had pleuritic symptoms consistent with pericarditis. Mild troponin elevation would suggest an element of myocardial involvement and myopericarditis appears to be the appropriate diagnosis. No evidence of LV dysfunction on echocardiography. He was started on the appropriate treatment which for his weight is colchicine 0.6 mg twice daily and ibuprofen 3 times daily. Ibuprofen can be tapered over the next couple of weeks. Colchicine should be continued for 3 months. While he did receive recent vaccinations this did not include COVID-19 or small pox. He has not report any recent history of COVID-19 infection. PCR was positive for adenovirus which is a common cause of pericarditis. 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 The patient has been experiencing some gastrointestinal symptoms for few days. This is characterized primarily by some nausea and diarrhea. Did have some close contacts who had viral type syndrome. However, yesterday he developed substernal chest discomfort. This was worse with deep inspiration and lying flat. Still some discomfort even when in the upright position. No radiation. No worsening with exertion. Did not have other symptoms of breathing difficulty or palpitation. No dizziness or lightheadedness. He presented to the emergency room for evaluation and was discovered to have mildly elevated cardiac troponin. He was admitted for observation. In general he is an active individual who does resistance training regularly. He does not perform regular cardiovascular exercise, but is quite active and does not report symptoms associated with exertion. No exertional chest pain, dyspnea, palpitation or dizziness. No similar symptoms in the past. The patient was administered nonsteroidal analgesics and colchicine. He reports resolution of his chest pain today. Allergies Allergy/AdvReac Type Severity Reaction Status Date / Time No Known Allergies Allergy Unverified 09/03/22 22:27 Home Medications Medication Instructions Recorded Confirmed Type No Known Home Medications 09/03/22 09/03/22 History Patient History Surgical History (Updated 09/03/22 @ 22:44 by Basil Jaffe MD) History of appendectomy Family History (Updated 09/03/22 @ 22:39 by Basil Jaffe MD) Grandfather (Paternal) Diabetes Social History Smoking Status: Never smoker Second Hand Exposure: No; Do You Dip or Chew Tobacco: No; Hx Alcohol Use: No Hx Substance Use: No Preferred Language: Bengali Communication Ability: Effective Elementary School Tutor Required: No Beliefs That Will Affect Care: None Current Living Situation: Other Current Living Situation Comment: [employer] student with roommate Feels Safe at Home: Yes Safety Concerns: Feels Safe At This Time Assistive Devices: None Review of Systems Review of Systems: Per HPI Physical Exam Physical Exam: The patient is alert and oriented. Mood and affect appeared normal. He answered all questions appropriately. HEENT: Pupils are equal and reactive to light and accommodation. Extraocular movements are intact. The sclerae are anicteric. Neuro: Cranial nerves intact Neck: Patient's neck is supple. He has palpable carotid pulses bilaterally without bruits on auscultation. There is no evidence of jugular venous distenti on. The thyroid is not enlarged. Lungs: Clear to auscultation bilaterally. He has good air movement without use of accessory muscles. No rales wheezes or rhonchi. Cardiac: Heart demonstrates a regular rate and rhythm. Normal S1 and S2. No murmurs on examination. Pulses: The patient has palpable radial pulses bilaterally that are equal in intensity Extremities: There was no evidence of hypoperfusion. There is no cyanosis or clubbing. There is no edema. Skin: I did not appreciate any rashes on examination today. Results & Data ([facility]) Vital Signs (Past 12 Hours) Vital Signs Temp Pulse Pulse Resp BP Pulse Ox Pulse Ox 09/04/22 09:22 36.8 C 81 18 111/70 99 09/04/22 07:26 66 09/04/22 05:31 36.3 C L 59 L 18 117/74 98 09/04/22 01:27 97 09/04/22 01:27 36.6 C 79 16 137/70 97 09/04/22 01:06 68 18 98 09/04/22 00:15 84 09/03/22 23:30 72 17 97 09/03/22 23:00 70 14 97 09/03/22 22:30 87 24 97 09/03/22 22:21 37.0 C 66 20 125/72 99 O2 Del Method O2 Del Method 09/04/22 09:22 Room Air 09/04/22 07:26 09/04/22 05:31 Room Air 09/04/22 01:27 Room Air 09/04/22 01:27 Room Air 09/04/22 01:06 Room Air 09/04/22 00:15 09/03/22 23:30 09/03/22 23:00 09/03/22 22:30 09/03/22 22:21 Room Air Laboratory Results Abnormal Lab Results 09/03/22 09/03/22 09/03/22 17:43 17:43 17:43 WBC 5.36 RBC 5.86 Hgb 16.6 Hct 47.3 MCV 80.7 MCH 28.3 MCHC 35.1 RDW Std Deviation 37.1 RDW Coeff of Nadeen 12.7 Plt Count 166 MPV 9.2 L Immature Gran % (Auto) 0.2 Neut % (Auto) 70.3 Lymph % (Auto) 15.3 Spencer % (Auto) 13.4 Eos % (Auto) 0.6 Baso % (Auto) 0.2 Neut # (Auto) 3.77 Lymph # (Auto) 0.82 L Spencer # (Auto) 0.72 H Eos # (Auto) 0.03 Baso # (Auto) 0.01 Immature Gran # (Auto) 0.01 Sodium 133 L Potassium 4.0 Chloride 99 Carbon Dioxide 29 Anion Gap 5 BUN 17 Creatinine 1.10 Est Cr Clr Drug Dosing 125.6 Est GFR ( Amer) 111.4 Est GFR (Non-Af Amer) 96.1 BUN/Creatinine Ratio 15.5 Glucose 92 Calcium 9.0 Magnesium Total Bilirubin 2.5 H Direct Bilirubin AST 29 ALT 31 Alkaline Phosphatase 64 Troponin I High Sens 61.9 H* Total Protein 7.6 Albumin 4.5 Globulin 3.1 Albumin/Globulin Ratio 1.5 Lipase 7 L Urine Color Urine Appearance Urine pH Ur Specific Venus Urine Protein Urine Glucose (UA) Urine Ketones Urine Blood Urine Nitrite Urine Bilirubin Urine Urobilinogen Ur Leukocyte Esterase Adenovirus (PCR) B. pertussis DNA (PCR) B.parapertussis DNA PCR C. pneumoniae DNA (PCR) Coronavirus OC43 (PCR) Coronavirus HKU1 (PCR) Coronavirus 229E (PCR) SARS-CoV-2 (PCR) NEGATIVE Coronavirus NL63 (PCR) Human Metapneumovir PCR Influenza Type A (PCR) Negative Influenza Type B (PCR) Negative M. pneumoniae (PCR) Parainfluenza 1 (PCR) Parainfluenza 2 (PCR) Parainfluenza 3 (PCR) Parainfluenza 4 (PCR) RSV (RT-PCR) Negative RSV (PCR) Entero/Rhino (PCR) 09/03/22 09/03/22 09/04/22 17:46 22:24 05:24 WBC RBC Hgb Hct MCV MCH MCHC RDW Std Deviation RDW Coeff of Nadeen Plt Count MPV Immature Gran % (Auto) Neut % (Auto) Lymph % (Auto) Spencer % (Auto) Eos % (Auto) Baso % (Auto) Neut # (Auto) Lymph # (Auto) Spencer # (Auto) Eos # (Auto) Baso # (Auto) Immature Gran # (Auto) Sodium 137 Potassium 3.5 Chloride 104 Carbon Dioxide 30 Anion Gap 3 BUN 16 Creatinine 1.07 Est Cr Clr Drug Dosing 124.5 Est GFR ( Amer) 115.2 Est GFR (Non-Af Amer) 99.4 BUN/Creatinine Ratio 15.0 Glucose 95 Calcium 8.3 L Magnesium 1.9 Total Bilirubin 1.7 H Direct Bilirubin 0.3 H AST 20 ALT 24 Alkaline Phosphatase 50 Troponin I High Sens 115.4 H* D Total Protein 5.8 L D Albumin 3.5 Globulin 2.3 L Albumin/Globulin Ratio 1.5 Lipase Urine Color Yellow Urine Appearance Clear Urine pH 6.5 Ur Specific Venus 1.023 Urine Protein Negative Urine Glucose (UA) Negative Urine Ketones Trace H Urine Blood Negative Urine Nitrite Negative Urine Bilirubin Negative Urine Urobilinogen Negative Ur Leukocyte Esterase Negative Adenovirus (PCR) DETECTED A* B. pertussis DNA (PCR) Not Detected B.parapertussis DNA PCR Not Detected C. pneumoniae DNA (PCR) Not Detected Coronavirus OC43 (PCR) Not Detected Coronavirus HKU1 (PCR) Not Detected Coronavirus 229E (PCR) Not Detected SARS-CoV-2 (PCR) Not Detected Coronavirus NL63 (PCR) Not Detected Human Metapneumovir PCR Not Detected Influenza Type A (PCR) Not Detected Influenza Type B (PCR) Not Detected M. pneumoniae (PCR) Not Detected Parainfluenza 1 (PCR) Not Detected Parainfluenza 2 (PCR) Not Detected Parainfluenza 3 (PCR) Not Detected Parainfluenza 4 (PCR) Not Detected RSV (RT-PCR) RSV (PCR) Not Detected Entero/Rhino (PCR) Not Detected 09/04/22 05:24 WBC 4.13 L RBC 5.05 Hgb 14.1 Hct 41.1 L MCV 81.4 MCH 27.9 MCHC 34.3 RDW Std Deviation 37.8 RDW Coeff of Nadeen 12.8 Plt Count 162 MPV 9.3 L Immature Gran % (Auto) 0.2 Neut % (Auto) 44.4 Lymph % (Auto) 32.4 Spencer % (Auto) 18.9 Eos % (Auto) 3.9 Baso % (Auto) 0.2 Neut # (Auto) 1.83 Lymph # (Auto) 1.34 Spencer # (Auto) 0.78 H Eos # (Auto) 0.16 Baso # (Auto) 0.01 Immature Gran # (Auto) 0.01 Sodium Potassium Chloride Carbon Dioxide Anion Gap BUN Creatinine Est Cr Clr Drug Dosing Est GFR ( Amer) Est GFR (Non-Af Amer) BUN/Creatinine Ratio Glucose Calcium Magnesium Total Bilirubin Direct Bilirubin AST ALT Alkaline Phosphatase Troponin I High Sens Total Protein Albumin Globulin Albumin/Globulin Ratio Lipase Urine Color Urine Appearance Urine pH Ur Specific Venus Urine Protein Urine Glucose (UA) Urine Ketones Urine Blood Urine Nitrite Urine Bilirubin Urine Urobilinogen Ur Leukocyte Esterase Adenovirus (PCR) B. pertussis DNA (PCR) B.parapertussis DNA PCR C. pneumoniae DNA (PCR) Coronavirus OC43 (PCR) Coronavirus HKU1 (PCR) Coronavirus 229E (PCR) SARS-CoV-2 (PCR) Coronavirus NL63 (PCR) Human Metapneumovir PCR Influenza Type A (PCR) Influenza Type B (PCR) M. pneumoniae (PCR) Parainfluenza 1 (PCR) Parainfluenza 2 (PCR) Parainfluenza 3 (PCR) Parainfluenza 4 (PCR) RSV (RT-PCR) RSV (PCR) Entero/Rhino (PCR) Diagnostic Findings Chest CTA and abdomen CT was performed at the time of admission. Evidence for enteritis. No other acute findings Echocardiogram performed 09/04/2022: Normal. Normal LV function without regional wall motion abnormalities. No significant valvular heart disease. No pericardial effusion. ECG Additional Comments: EKG obtained the time admission revealed normal sinus rhythm with a rightward axis otherwise unremarkable. No significant ST or T-wave changes. PG Care Time/CCT Total # of Minutes Spent Total Time Spent with Patient: Total time spent is greater than 50% in coordination of care (as documented) at patient's floor/unit and/or counseling patient: Coding Level of Care Code INP/OBS CONSULT LVL 4, 60 MIN Diagnoses Acute myopericarditis I30.9
--- NOTE | 2022-09-04 11:20 | Electrocardiogram Report ---
Test Reason : Blood Pressure : / mmHG Vent. Rate : 081 BPM Atrial Rate : 081 BPM P-R Int : 162 ms QRS Dur : 098 ms QT Int : 354 ms P-R-T Axes : 057 094 037 degrees QTc Int : 411 ms Normal sinus rhythm Rightward axis Borderline ECG No previous ECGs available Confirmed by Kamaljit Clayton ([id number]) on 09/04/2022 11:20:09 AM Referred By: REFERRED SELF Confirmed By:Jasper Clayton
--- NOTE | 2022-09-04 13:27 | Discharge Summary ---
Date of Service September 04, 2022 Admission HPI Per Admitting Provider 22 y/o male w/ no PMHx who presents w/ nausea, watery diarrhea (no blood or mucus), and epigastric abd pain since 2 days ago. Fever to 38.3F. Pleuritic midsternal chest pain since noon today. [employer] student. No undercooked foods or recent travel. 08/31 roommate was vomiting. Feeling better currently. Pain level is 2-3/10 (improved from 7/10). He recived meningococcal and MMR vaccines last month. Denies having diabetes type symptoms. Denies fhx of sickle cell or gallbladder disease. Decreased appetite since 09/01. No marijuana or etoh in past month in past month. Recreational tobacco. Binge drinks etoh on some weekends. Had waves of 8/10 abd pain, no radiation, stayed for minutes. No hx similar. No current epigastric pain or pleuritic chest pain: the ED medications helped. No fhx VTE. He states he takes a lot of nutritional supplements, including vitamins, minerals, and workout protein. Ed course: Discussed w/ cardiology. Colchicine. 2L NSS. Toradol, IV Tylenol. 38.3C. HR 96x1, resolved. Other VSS. CBC wnl. Na 133. Cr 1.10. T bili 2.5. hs trop 61.9x1. Lipase wnl. UA w/ trace ketones. resp biofire pos for adenovirus. CT abd w/ suggests nonspecific enteritis. CTA neg for PE. Principal Diagnosis acute myopericarditis Discharge Exam The patient is awake, alert and oriented 3, well developed and well nourished, normocephalic and atraumatic, lying in bed and in no acute distress. HEENT--PERRL, EOMI, mucous membranes and oropharynx mildly dry Neck--supple. No JVD. No bruits. Thyroid normal, trachea midline, no adenopathy. Heart--normal S1 and S2. No murmurs, rubs or gallops. Lungs--clear bilaterally, no respiratory distress, no accessory muscle use. Abdomen--normal bowel sounds and soft. Mild epigastric and left sided abdominal pain Extremities--no cyanosis or clubbing. No edema. Dermatologic--normal skin turgor, normal color, no abnormal lymph nodes, no rash. Neurologic--cranial nerves II through XII grossly intact. Rheumatologic--normal range of motion. Psychiatric--normal affect. Discharge Data Allergies Allergy/AdvReac Type Severity Reaction Status Date / Time No Known Allergies Allergy Unverified 09/03/22 22:27 Consultations 09/03/22 22:14 ED Decision to Admit Stat 09/04/22 07:00 Consult Cardiology Routine Ordered Studies 09/03/22 20:48 CT abd pelvis IV con only Urgent CT angio chest PE protocol Urgent Hospital Course (1) Acute myopericarditis: Patient admitted on account of pleuritic chest pain had suspected viral enteritis Found to be positive for adenovirus ECHO was wnl Cradiology consulted, recommend NSAIDS for a few more days and Colchicine for 3 months outpatient follow up with cardiology (2) Elevated troponin I level: secondary to myopericarditis (3) Enteritis: Adenovirus enteritis Plan d/cc home Total Time Total Time Spent Total Time Spent (In Minutes): 35 Discharge Plan Discharge Items Patient Disposition: Home - Self-Care Reason For Visit: NAUSEA, DIARRHEA, AND PLEURITIC CHEST PAIN Discharge Diagnosis: viral pericarditis Activity: Resume your previous activity Non-emergency contact: Primary Care Provider and Patent Lawyer Call non-emergency contact if: you have any medication questions and your symptoms worsen Follow-up/Referrals: [facility] [Primary Care Provider] - (PLEASE CALL YOUR PRIMARY CARE PROVIDER TO SCHEDULE A DISCHARGE FOLLOW-UP APPOINTMENT WITHIN 7-10 DAYS) Diet: Regular Addtl Attending Provider Instructions: please make appointment to follow up with cardiology in 2 weeks Pending Studies at Discharge: No Stand-Alone Forms: My [facility] [address] [employer], Work/School Release, Smoking Cessation Medications and DC Order Prescriptions: New ibuprofen 600 mg Tablet 600 mg PO Q8H 3 Days Qty: 9 0RF colchicine [Colcrys] 0.6 mg Tablet 0.6 mg PO BID 90 Days Qty: 180 0RF Discharge Orders: Discharge Order (Routine); Ordered 09/04/22 Ordered By: Stan Proctor Admission Data Admit Date/Time: 09/03/22 23:09 Attending Provider: Stan Proctor Admit Provider: Basil Jaffe Primary Care Provider: [facility] Other Providers: Ileana Morales ; Brandon Slater Coding Level of Care Code HOSP INP/OBS DISCH >30 MIN Diagnoses Acute myopericarditis I30.9 Elevated troponin I level R77.8 Enteritis K52.9 Time Spent (min) 35
--- NOTE | 2022-09-04 22:29 | Billing Data ---
Date of Service September 03, 2022 Coding Level of Care Code 86393 INT INP/OBS CARE
== END 2022-09-04 14:36 | disposition home or self-care (01) | DRG 315 ==
LOC: ED 16:44 → SUATTDRO 23:09 → INTOOBSV 23:09 → 4W 23:09 → 2N 09-04 10:28